=== PATIENT | male | born 1970 | race Hispanic/Latino ===

== ENCOUNTER 2018-02-21 07:33 | Emergency (ER) | payer BC, OTHER ==
[2018-02-21 07:35] VITALS: BMI 25.8
--- NOTE | 2018-02-21 08:35 | RAD ---
HISTORY: fever cough COMPARISON: No prior. TECHNIQUE: Chest PA and lateral FINDINGS: LUNGS: In the retro sternal location a 1 x 2 cm opacity projects over the anterior heart a vague opacity less conspicuous projects over the right lung base just lateral to the mammillated right hemidiaphragm. No air bronchograms are present. Some pleural parenchymal pathology here is nonetheless possible including a minimal subtle infiltrate. PLEURA: No significant pleural effusion identified. No pneumothorax apparent. Small focal pleural parenchymal pathology possible retrosternal location as above CARDIOVASCULAR: Normal. OSSEOUS STRUCTURES: Trace thoracic spondylosis. VISUALIZED UPPER ABDOMEN: Normal. OTHER FINDINGS: Right hemidiaphragmatic elevation/with mammilation. IMPRESSION: The small nonspecific opacity in the retro sternal location on lateral view may be a subtle infiltrate at the right lung base given the clinical history. Its stability is unknown. Nonspecific pleural parenchymal thickening is also a consideration. If prior outside chest x-rays are available providing them for comparison would be helpful. If not, consider more definitive evaluation with noncontrast CT chest imaging
--- NOTE | 2018-02-21 08:49 | ED PDOC ---
HPI: General Adult Time Seen by Provider: 02/21/18 08:05 Chief Complaint (Nursing): Cough, Cold, Congestion Chief Complaint (Provider): Sore Throat History Per: Patient History/Exam Limitations: no limitations Onset/Duration Of Symptoms: Days (x2) Current Symptoms Are (Timing): Still Present Additional Complaint(s): 47 y/o male with no significant pmhx, who presents to the ED for evaluation of sore throat, fever, cough, body aches, congestion, and sinus headache x2 days. Patient reports taking Advil for symptoms. Denies any medical problems or surgeries. PMD: Provider TBD Past Medical History Reviewed: Historical Data, Nursing Documentation, Vital Signs Vital Signs: Last Vital Signs Temp 97.9 F 02/21/18 10:45 Pulse 75 02/21/18 10:45 Resp 16 02/21/18 10:45 BP 108/65 02/21/18 10:45 Pulse Ox 100 02/21/18 10:45 - Medical History PMH: No Chronic Diseases Denies: Depression - Surgical History Surgical History: No Surg Hx - Family History Family History: States: Unknown Family Hx - Home Medications Home Medications: Ambulatory Orders Medication Instructions Recorded Alprazolam [Xanax] 2 mg PO TID 02/04/14 Methadone [Methadone HCl] 70 mg PO DAILY 02/04/14 Azithromycin [Z-Jeff] 250 mg PO ASDIR #6 tab 02/21/18 - Allergies Allergies/Adverse Reactions: Allergies Allergy/AdvReac Type Severity Reaction Status Date / Time Penicillins Allergy RASH Verified 02/21/18 07:55 shellfish derived Allergy RASH Verified 02/21/18 07:55 Review of Systems ROS Statement: Except As Marked, All Systems Reviewed And Found Negative Constitutional: Positive for: Fever ENT: Positive for: Nose Congestion, Throat Pain Respiratory: Positive for: Cough Musculoskeletal: Positive for: Other (body aches) Neurological: Positive for: Headache Physical Exam - Reviewed Nursing Documentation Reviewed: Yes Vital Signs Reviewed: Yes - Physical Exam Appears: Positive for: Well, Non-toxic, No Acute Distress Head Exam: Positive for: ATRAUMATIC, NORMAL INSPECTION, NORMOCEPHALIC Skin: Positive for: Warm, Dry Eye Exam: Positive for: EOMI, Normal appearance, PERRL ENT: Positive for: Normal ENT Inspection Neck: Positive for: Normal, Painless ROM, Supple Respiratory: Positive for: Normal Breath Sounds. Negative for: Respiratory Distress Gastrointestinal/Abdominal: Positive for: Soft. Negative for: Tenderness Extremity: Positive for: Normal ROM Neurologic/Psych: Positive for: Alert, Oriented - ECG O2 Sat by Pulse Oximetry: 97 (RA) Pulse Ox Interpretation: Normal Medical Decision Making Medical Decision Makin:17 Initial Impression: URI. Differential diagnoses include, but are not limited to influenza and pneumonia. Plan: --CXR --Throat culture --Influenza A B --Rapid strep group A --Reevaluation Report Date : 02/21/2018 08:33:47 HISTORY: fever cough COMPARISON: No prior. TECHNIQUE: Chest PA and lateral FINDINGS: LUNGS: In the retro sternal location a 1 x 2 cm opacity projects over the anterior heart a vague opacity less conspicuous projects over the right lung base just lateral to the mammillated right hemidiaphragm. No air bronchograms are present. Some pleural parenchymal pathology here is nonetheless possible including a minimal subtle infiltrate. PLEURA: No significant pleural effusion identified. No pneumothorax apparent. Small focal pleural parenchymal pathology possible retrosternal location as above CARDIOVASCULAR: Normal. OSSEOUS STRUCTURES: Trace thoracic spondylosis. VISUALIZED UPPER ABDOMEN: Normal. OTHER FINDINGS: Right hemidiaphragmatic elevation/with mammilation. IMPRESSION: The small nonspecific opacity in the retro sternal location on lateral view may be a subtle infiltrate at the right lung base given the clinical history. Its stability is unknown. Nonspecific pleural parenchymal thickening is also a consideration. If prior outside chest x-rays are available providing them for comparison would be helpful. If not, consider more definitive evaluation with noncontrast CT chest imaging Scribe Attestation: Documented by Reynaldo Beck, acting as a scribe for Tai Hernandez MD. Provider Scribe Attestation: All medical record entries made by the Scribe were at my direction and personally dictated by me. I have reviewed the chart and agree that the record accurately reflects my personal performance of the history, physical exam, medical decision making, and the department course for this patient. I have also personally directed, reviewed, and agree with the discharge instructions and disposition. Disposition - Clinical Impression Clinical Impression: Pneumonia, Pharyngitis - Patient ED Disposition Is Patient to be Admitted: No Doctor Will See Patient In The: Office Counseled Patient/Family Regarding: Studies Performed, Diagnosis, Need For Followup - Disposition Referrals: [facility] [Outside] Disposition: Routine/Home Disposition Time: 10:00 Condition: GOOD Additional Instructions: Take your medications as instructed. Follow up with your PCP in 2-3 days. Prescriptions: Azithromycin [Z-Jeff] 250 mg PO ASDIR #6 tab Instructions: Pneumonia in Adults
[2018-02-21 10:46] VITALS: BP 108/65; PULSE 75; RESP 16; TEMP 97.9
[2018-02-22 20:29] VITALS: O2SAT 97
== END 2018-02-21 10:47 | disposition home or self-care (01) ==
LOC: H.ER 07:33
DX: J02.9 Acute pharyngitis, unspecified (principal); J18.9 Pneumonia, unspecified organism; Z88.0 Allergy status to penicillin